=== PATIENT | female | born 1950 | race Caucasian/White ===

== ENCOUNTER 2019-04-09 07:44 | Outpatient (CLI) | payer MEDICARE, OTHER, SELFPAY ==
[2019-04-09 08:44] LABS: Hemoglobin A1C 6.5 % (<5.7)
[2019-04-09 08:45] LABS: Alanine Aminotransferase 16 U/L (4-35); Albumin Level 4.2 g/dL (3.5-5.1); Alkaline Phosphatase 61 U/L (38-126); Aspartate Amino Transferase 25 U/L (14-36); Bilirubin,Total 0.7 mg/dL (0.2-1.3); Blood Urea Nitrogen 17 mg/dL (7-17); Calcium 9.2 mg/dL (8.4-10.2); Carbon Dioxide 28 mmol/L (22-30); Chloride 100 mmol/L (98-107); Cholesterol 192 mg/dL (0-200); Estimated Glomerular Filt Rate > 60; Glucose 116 mg/dL (65-105); HDL Direct 79 mg/dL; Potassium 4.5 mmol/L (3.4-5.0); Sodium 139 mmol/L (137-145); Triglycerides 106 mg/dL (<150)
[2019-04-09 08:56] LABS: LDL Cholesterol Direct 88 mg/dL
== END 2019-04-09 07:45 | disposition home or self-care (01) ==
PROVIDERS: PCP Family Medicine; Visit Provider Family Medicine
DX: E11.9 Type 2 diabetes mellitus without complications (principal); E78.2 Mixed hyperlipidemia; Z79.84 Long term (current) use of oral hypoglycemic drugs
CPT/HCPCS: 36415; 80053; 80061; 83036

== ENCOUNTER 2021-03-06 12:11 | Outpatient (RCR) | payer MEDICARE, OTHER, SELFPAY ==
[2021-03-06] MEDS: diphenhydrAMINE HCl CAP 25 MG CAPSULE PO (15:29)
[2021-03-06] MEDS: ACETAMINOPHEN 325 MG TABLET 650 MG PO (15:29)
[2021-03-06] MEDS: FAMOTIDINE 20 MG TABLET PO (15:29)
[2021-03-06 15:34] VITALS: BP 152/80; PULSE 94; RESP 16; TEMP 36.1; O2SAT 99
[2021-03-06 16:23] VITALS: BP 133/60; PULSE 80; O2SAT 99
== END 2021-03-06 17:00 ==
LOC: AMCINF 12:11
PROVIDERS: PCP Family Medicine; Visit Provider Internal Medicine Hematology & Oncology
DX: U07.1 COVID-19 (principal); E11.9 Type 2 diabetes mellitus without complications
CPT/HCPCS: A9270; M0243; Q0244